=== PATIENT | female | born 1975 | race Caucasian/White ===

== ENCOUNTER 2019-12-02 10:50 | Emergency (ER) | payer BC ==
[2019-12-02] MEDS ORDERED: Acetaminophen/oxyCODONE 325-5 MG Tab PO ONE (10:51)
[2019-12-02] MEDS ORDERED: Ondansetron 4 MG Tab.DIS PO ONE (10:51)
--- NOTE | 2019-12-02 11:09 | EDM.PDOC ---
ED HPI GENERAL MEDICAL PROBLEM - General Chief Complaint: General Stated Complaint: neck pain Time Seen by Provider: 12/02/19 10:55 Source of Information: Reports: Patient History Limitations: Reports: No Limitations - History of Present Illness INITIAL COMMENTS - FREE TEXT/NARRATIVE: Patient to the emergency department where she advises that she started having increase in pain to her right lower neck area on this past as well as a mild headache. The patient advises today the headache is extremely severe and the worst of her life. She also advises that she has increasing pain in her neck and this is more worse than it has ever been. 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 The patient denies any change in vision, she denies any ear, nose, or throat symptoms she denies any chest pain or shortness of breath she denies any palpitations irregular heartbeat she denies any calf pain redness or swelling she denies any abdominal pain she has had nausea and some vomiting she has no fever chills denies any other symptoms. Onset: Gradual Duration: Day(s): (Symptoms started on ) Location: Reports: Head, Neck Quality: Reports: Ache, Throbbing Severity: Severe Improves with: Reports: None Worsens with: Reports: None Associated Symptoms: Reports: Headaches, Nausea/Vomiting. 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 [No Known Home Meds] 12/02/19 [History] ED ROS GENERAL - Review of Systems Review Of Systems: See Below Constitutional: Reports: No Symptoms. Denies: Fever, Chills, Weakness HEENT: Reports: No Symptoms. Denies: Ear Pain, Nose Pain, Throat Pain Respiratory: Reports: No Symptoms. Denies: Shortness of Breath, Cough Cardiovascular: Reports: No Symptoms. Denies: Chest Pain, Claudication, Palpitations GI/Abdominal: Reports: Nausea, Vomiting. Denies: Abdominal Pain : Reports: No Symptoms Musculoskeletal: Reports: Neck Pain. Denies: Shoulder Pain, Back Pain Skin: Reports: No Symptoms. Denies: Bruising, Rash, Erythema Neurological: Reports: Headache. Denies: Confusion, Dizziness, Numbness, Tingling, Trouble Speaking, Weakness, Gait Disturbance Psychiatric: Reports: No Symptoms ED EXAM, GENERAL - Physical Exam Exam: See Below Exam Limited By: No Limitations General Appearance: Alert, WD/WN, Mild Distress, Thin Eye Exam: Bilateral Eye: EOMI, PERRL Ears: Normal External Exam, Normal Canal, Hearing Grossly Normal, Normal TMs Ear Exam: Bilateral Ear: Auricle Normal, Canal Normal, TM normal Nose: Normal Inspection, Normal Mucosa Throat/Mouth: Normal Inspection, Normal Lips, Normal Oropharynx, Normal Voice, No Airway Compromise Head: Atraumatic, Normocephalic Neck: Normal Inspection, Supple, Full Range of Motion. No: Non-Tender (Tenderness at the right base of the neck with palpation) Respiratory/Chest: No Respiratory Distress, Lungs Clear, Normal Breath Sounds, Chest Non-Tender Cardiovascular: Normal Peripheral Pulses, Regular Rate, Rhythm, No Edema, No Murmur Peripheral Pulses: 2+: Radial (L), Radial (R), Posterior Tibial (L), Posterior Tibial (R) GI/Abdominal: Soft, Non-Tender Back Exam: Normal Inspection, Full Range of Motion Extremities: Normal Inspection, Normal Range of Motion, Non-Tender, No Pedal Ed quentin, Normal Capillary Refill. No: Renato's Sign Neurological: Alert, Oriented, CN II-XII Intact, Normal Cognition, Normal Gait, No Motor/Sensory Deficits Psychiatric: Normal Affect, Normal Mood Skin Exam: Warm, Dry, Intact, Normal Color Course - Vital Signs Text/Narrative:: 1109 the patient was evaluated in the emergency department as the patient advises this is the worst headache of her life, CT of the head will be obtained without contrast, the patient also advises that she has a severe neck pain which is more worse than it ever has been in the past as well. The patient advises she does have a tumor at the base of the spine on the right side. This is being monitored at the [facility]. A CT of the neck with IV contrast will be obtained. Lab work is been ordered and am awaiting the internetworking technician to collect the specimen. An IV is been established the patient will be given morphine 4 mg IV as well as Zofran 4 mg IV. 1233 the patient CBC and overall general chemistries are essentially negative except she does have some elevated liver function test. CT of the head and cervical spine have been completed and sent to the radiologist and currently awaiting the radiology report. And a quick review I do not see any obvious abnormalities in the head, there is an abnormality I suspect the tumor that the patient has described between C1 and C2. The patient did have significant relief with the medication and the pain is starting to come back and these medicines are being repeated. 1312 CT of the head neck are back and read by the radiologist which does not show any acute abnormalities in the brain it does show the mass area as previously noted. See the radiology reading for complete details. It does not appear as if there is any acute findings however. The patient was advised all this as well as that her liver function is elevated and this will need to be followed to determine what is going on there and to have any further treatment or evaluation that is needed for that. The patient has had relief once again with the second morphine and relief of the nausea with the second Zofran. The patient will be discharged home to be advised to follow-up the family doctor this coming week she is to return to the emergency department as needed the patient will be given 1 take-home pack of Percocet and Zofran to go as needed. Last Recorded V/S: Last Vital Signs Temp 35.3 C L 12/02/19 11:07 Pulse 82 12/02/19 11:07 Resp 18 12/02/19 11:07 BP 123/73 12/02/19 11:07 Pulse Ox 100 12/02/19 11:07 - Orders/Labs/Meds Orders: Active Orders 24 hr Category Date Time Status Cervical Spine w Cont [CT] Stat Exams 12/02/19 11:01 Taken Head wo Cont [CT] Stat Exams 12/02/19 11:01 Taken Acetaminophen/oxyCODONE [Take Home: Acetaminophen/ Med 12/02/19 13:16 Once oxyCODON, 2 Tab Pack] 1 packet PO ONETIME ONE Ondansetron [Take Home: Ondansetron ODT 4 MG, 2 Tab Med 12/02/19 13:16 Once Pack] 1 packet PO ONETIME ONE Labs: Laboratory Tests 12/02/19 12/02/19 Range/Units 11:01 11:01 WBC 6.7 (5.0-10.0) 10^3/uL RBC 3.85 L (4.00-5.50) 10^6/uL Hgb 12.4 (12.0-16.0) g/dL Hct 37.3 (37.0-47.0) % MCV 96.9 H (82.0-94.0) fL MCH 32.2 H (27.0-32.0) pg MCHC 33.2 (33.0-38.0) g/dL RDW Coeff of Ivana 11.7 (11.0-15.0) % Plt Count 172 (150-400) 10^3/uL Neut % (Auto) 73.5 (35-85) % Lymph % (Auto) 19.9 (10-55) % [place] % (Auto) 5.8 (0-16) % Eos % (Auto) 0.7 (0-5) % Baso % (Auto) 0.1 (0-3) % Neut # (Auto) 4.93 (1.80-7.00) 10^3/uL Lymph # (Auto) 1.34 (1.00-4.80) 10^3/uL [place] # (Auto) 0.39 (0.00-0.80) 10^3/uL Eos # (Auto) 0.05 (0.00-0.45) 10^3/uL Baso # (Auto) 0.01 10^3/uL Sodium 140 (136-145) mEq/L Potassium 3.5 (3.5-5.0) mEq/L Chloride 104 (98-106) mEq/L Carbon Dioxide 27 (21-32) mmol/L BUN 8 (7-18) mg/dL Creatinine 0.9 (0.6-1.0) mg/dL Est Cr Clr Drug Dosing TNP Estimated GFR (MDRD) > 60 (>=60) mL/min Glucose 153 H D (75-99) mg/dL Calcium 8.8 (8.4-10.1) mg/dL Total Bilirubin 1.1 H (0.0-1.0) mg/dL AST 281 H (15-37) U/L ALT 174 H (12-78) U/L Alkaline Phosphatase 46 (46-116) U/L C-Reactive Protein < 0.2 L (0.2-0.8) mg/dL Total Protein 6.2 L (6.4-8.2) g/dL Albumin 3.8 (3.4-5.0) g/dL Meds: Medications Discontinued Medications Generic Name Dose Route Start Last Admin Trade Name Paddy PRN Reason Stop Dose Admin Iopamidol 80 ml 12/02/19 12:06 12/02/19 12:15 Isovue-370 (76%) IVPUSH 12/02/19 12:07 80 ml ONETIME ONE Administration Morphine Sulfate 4 mg 12/02/19 11:01 12/02/19 11:26 Morphine IVPUSH 12/02/19 11:02 4 mg ONETIME ONE Administration Morphine Sulfate 4 mg 12/02/19 12:32 12/02/19 12:38 Morphine IVPUSH 12/02/19 12:33 4 mg ONETIME ONE Administration Ondansetron HCl 4 mg 12/02/19 11:04 12/02/19 11:26 Zofran IVPUSH 12/02/19 11:05 4 mg ONETIME ONE Administration Ondansetron HCl 4 mg 12/02/19 12:33 12/02/19 12:38 Zofran IVPUSH 12/02/19 12:34 4 mg ONETIME ONE Administration Departure - Departure Time of Disposition: 13:14 Disposition: Home, Self-Care 01 Condition: Good Clinical Impression: Headache, Cervical spine pain - Discharge Information *PRESCRIPTION DRUG MONITORING PROGRAM REVIEWED*: Not Applicable *COPY OF PRESCRIPTION DRUG MONITORING REPORT IN PATIENT ABBY: Not Applicable Instructions: Form - Headache Record Referrals: Meño Martin MD [Primary Care Provider] - Forms: ED Department Discharge Additional Instructions: Rest Increase fluids Percocet 1 every 6 hours as needed for pain Zofran 1 every 6 hours as needed for any nausea or vomiting Follow-up with your family doctor this week for further evaluation and treatment of your pain and discomfort as well as your elevated liver function test, call Wednesday for an appointment time Return to the emergency department sooner if worse or any problems Sepsis Event Note (ED) - Focused Exam Vital Signs: Vital Signs Temp Pulse Resp BP Pulse Ox 12/02/19 11:07 35.3 C L 82 18 123/73 100 - Problem List & Annotations (1) Cervical spine pain SNOMED Code(s): 952721835 Code(s): M54.2 - CERVICALGIA Status: Acute Priority: Medium Current Visit: Yes (2) Headache SNOMED Code(s): 69277454 Code(s): R51 - HEADACHE Status: Acute Priority: Medium Current Visit: Yes Qualifiers: Headache type: unspecified Intractability: not intractable - Problem List Review Problem List Initiated/Reviewed/Updated: Yes - My Orders Last 24 Hours: My Active Orders 12/02/19 11:01 Cervical Spine w Cont [CT] Stat Head wo Cont [CT] Stat 12/02/19 13:16 Acetaminophen/oxyCODONE [Take Home: Acetaminophen/oxyCODON, 2 Tab Pack] 1 packet PO ONETIME ONE Ondansetron [Take Home: Ondansetron ODT 4 MG, 2 Tab Pack] 1 packet PO ONETIME ONE - Assessment/Plan Last 24 Hours: My Active Orders 12/02/19 11:01 Cervical Spine w Cont [CT] Stat Head wo Cont [CT] Stat 12/02/19 13:16 Acetaminophen/oxyCODONE [Take Home: Acetaminophen/oxyCODON, 2 Tab Pack] 1 packet PO ONETIME ONE Ondansetron [Take Home: Ondansetron ODT 4 MG, 2 Tab Pack] 1 packet PO ONETIME ONE Plan: The patient's past medical history, past surgical history, past social history, past family medical history was reviewed see the nursing notes for details
[2019-12-02] MEDS: Ondansetron 4 MG/2 ML SDV IVPUSH ONE ×2 (11:26→12:38)
[2019-12-02 11:31] LABS: CHLORIDE,CL 104 mEq/L (98-106); SODIUM,NA 140 mEq/L (136-145)
[2019-12-02] MEDS: Iopamidol 755 Mg/ML 100 ML Bottle IVPUSH ONE (12:15)
[2019-12-02] MEDS: Take Home: Ondansetron 4 MG Tab.DIS, 2 Tab Pack PO ONE (13:26)
[2019-12-02] MEDS: Take Home: Acetaminophen/oxyCODONE 325-5 MG, 2 Tab Pack PO ONE (13:26)
== END 2019-12-02 13:38 | disposition home or self-care (01) ==
LOC: CC.ED 10:50
DX: M54.2 Cervicalgia (principal); R51 Headache
CPT/HCPCS: 36415; 70450; 72126; 80053; 85025; 86140; 96374; 96375; 96376; 99284; A9270; J2270; J2405; Q9967

== ENCOUNTER 2024-05-12 09:49 | Day surgery (SDC) | payer BC ==
[2024-05-12] MEDS: Lactated Ringers 1,000 ML IV SCH (10:25)
[2024-05-12] MEDS ORDERED: Propofol 200 MG/20 ML SDV ONE ×2 (11:10)
[2024-05-12] MEDS ORDERED: Flumazenil 0.1 MG/ML 5 ML MDV ONE (11:10)
[2024-05-12] MEDS ORDERED: Midazolam 1 MG/ML 2 ML SDV ONE (11:10)
[2024-05-12] MEDS ORDERED: Lidocaine 2% 20 ML MDV ONE (11:10)
[2024-05-12] MEDS ORDERED: Ketamine 200 MG/20 ML MDV ONE (11:10)
[2024-05-12] MEDS ORDERED: fentaNYL 50 MCG/ML SDV ONE ×2 (11:10)
== END 2024-05-12 13:00 | disposition home or self-care (01) ==
LOC: CC.SDS 09:49
PROVIDERS: ATTEND Family Medicine
DX: Z12.11 Encounter for screening for malignant neoplasm of colon (principal); D12.5 Benign neoplasm of sigmoid colon; F41.9 Anxiety disorder, unspecified; K21.9 Gastro-esophageal reflux disease without esophagitis; K44.9 Diaphragmatic hernia without obstruction or gangrene; N95.1 Menopausal and female climacteric states; Z79.899 Other long term (current) drug therapy
CPT/HCPCS: 00813; 36415; 84703; 87081; J2250; J2704; J3010; J3490; J7120